=== PATIENT | male | born 1940 | race Caucasian/White ===

== ENCOUNTER → 2022-03-03 | Outpatient (CLI) | payer OTHER ==
[~2022-03-03] MED LIST: BENAZEPRIL HCL10 MG PO; CLEOCIN HCL300 MG PO; ELIQUIS2.5 MG PO; HYDROCODON-ACE1 EAC4 PO; LEVOFLOXACIN500 MG PO; SIMVASTATIN20 MG PO
== END ==
LOC: EXRD 08:04
DX: I10 Essential (primary) hypertension (principal); I48.0 Paroxysmal atrial fibrillation; R42 Dizziness and giddiness; R91.8 Other nonspecific abnormal finding of lung field
CPT/HCPCS: 71046

== ENCOUNTER → 2022-03-03 | Outpatient (CLI) | payer OTHER ==
[2022-03-03 09:42] LABS: HEMOGLOBIN 15.6 gm/dl (14.0-17.5); RED BLOOD COUNT 5.08 M/UL (4.20-5.50); WHITE BLOOD COUNT 6.3 K/UL (4.5-11.0)
[2022-03-03 15:44] LABS: BUN/CREATININE RATIO 13 (0-10)
== END ==
LOC: LAB 08:40
PROVIDERS: Internal Medicine Cardiovascular Disease
DX: I10 Essential (primary) hypertension (principal); I48.0 Paroxysmal atrial fibrillation; R42 Dizziness and giddiness
CPT/HCPCS: 36415; 80048; 85025

== ENCOUNTER → 2022-03-05 | Outpatient (CLI) | payer OTHER | LOC: CATH 06:33 | DX: Z45.010 Encounter for checking and testing of cardiac pacemaker pulse generator [battery] (principal); I49.5 Sick sinus syndrome; I10 Essential (primary) hypertension | CPT/HCPCS: 33213; 99152; 99153; C1785; J2250; J3010; J3370; J7040; J7050 ==